=== PATIENT | male | born 1995 | race Caucasian/White ===

== ENCOUNTER 2017-11-13 01:59 | Emergency (ER) | payer OTHER, BC ==
[2017-11-13 03:42] LABS: BASO # 0.1 10^3/uL (0.0-0.2); BASO % 0.5 % (0.0-1.0); EOS % 0.1 % (0.0-3.0); HEMATOCRIT 47.2 % (42.0-52.0); HEMOGLOBIN 16.4 g/dl (14.0-18.0); IMMATURE GRANULOCYTE % 0.3 % (0-3.0); LYMPH # 2.6 10^3/uL (1.5-6.5); LYMPH % 22.1 % (24.0-44.0); MEAN CORPUSCULAR HEMOGLOBIN 29.5 pg (27.0-33.0); MEAN CORPUSCULAR HGB CONC 34.7 g/dl (32.0-36.5); MEAN CORPUSCULAR VOLUME 84.9 fl (80.0-96.0); MONO # 0.7 10^3/uL (0.0-0.8); MONO % 6.3 % (0.0-5.0); NEUTROPHILS # 8.2 10^3/uL (1.8-7.7); NEUTROPHILS % 70.7 % (36.0-66.0); PLATELET COUNT, AUTOMATED 252 10^3/uL (150-450); RED BLOOD COUNT 5.56 10^6/uL (4.30-6.10); RED CELL DISTRIBUTION WIDTH 12.3 % (11.5-14.5); WHITE BLOOD COUNT 11.7 10^3/uL (4.0-10.0)
[2017-11-13 03:54] LABS: PROTHROMBIN TIME 12.3 SECONDS (12.4-14.5)
[2017-11-13 03:55] LABS: PARTIAL THROMBOPLASTIN TIME 30.9 SECONDS (26.8-37.9)
[2017-11-13 04:13] LABS: ALBUMIN 4.1 GM/DL (3.2-5.2); ALBUMIN/GLOBULIN RATIO 1.14 (1.00-1.93); ALKALINE PHOSPHATASE 67 U/L (45-117); ALT/SGPT 43 U/L (12-78); AMYLASE 47 U/L (25-115); ANION GAP 6 MEQ/L (8-16); AST/SGOT 28 U/L (7-37); BILIRUBIN,DIRECT 0.1 MG/DL (0.0-0.2); BILIRUBIN,TOTAL 0.5 MG/DL (0.2-1.0); BLOOD UREA NITROGEN 10 MG/DL (7-18); CALCIUM LEVEL 8.4 MG/DL (8.5-10.1); CARBON DIOXIDE LEVEL 27 MEQ/L (21-32); CHLORIDE LEVEL 110 MEQ/L (98-107); CPK CREATINE PHOSPHOKINASE 356 U/L (39-308); CREATININE FOR GFR 0.89 MG/DL (0.70-1.30); GLOMERULAR FILTRATION RATE > 60.0 (>60); GLUCOSE, FASTING 111 MG/DL (70-100); KETONE, URINE AUTO RFX TRACE mg/dL (NEGATIVE); LIPASE 180 U/L (73-393); MB/CK RELATIVE INDEX 0.84 (< OR =4); MUCUS, URINE RFX SMALL (NEGATIVE); NITRITE, URINE AUTO RFX NEGATIVE (NEGATIVE); POTASSIUM SERUM 4.1 MEQ/L (3.5-5.1); RBC, URINE AUTO RFX 6 /HPF (0-3); SODIUM LEVEL 143 MEQ/L (136-145); SPECIFIC GRAVITY UR AUTO RFX 1.018 (1.002-1.035); SQUAM EPITHELIAL CELL UR AURFX 0 /HPF (0-6); TOTAL PROTEIN 7.7 GM/DL (6.4-8.2); TROPONIN I < 0.02 NG/ML (< 0.10); WBC, URINE AUTO RFX 8 /HPF (0-3)
[2017-11-13 04:26] LABS: LEUKOCYTE ESTERASE UR AUTO RFX TRACE (NEGATIVE)
[2017-11-13] MEDS: MORPHINE 4 MG/ML 1ML VIAL (J2270) IV (05:00)
== END 2017-11-13 05:22 | disposition home or self-care (01) ==
LOC: M ED 01:59
DX: Z04.1 Encounter for examination and observation following transport accident (principal); M62.830 Muscle spasm of back; F17.200 Nicotine dependence, unspecified, uncomplicated
CPT/HCPCS: J2270

== ENCOUNTER 2018-05-03 09:51 | Emergency (ER) | payer OTHER ==
[2018-05-03] MEDS: ADACEL/BOOSTRIX VACCINE (DIPHTH/PERTUSS/ACELL/TETANUS)0.5ML SYR (90715) IM (10:26)
[2018-05-03] MEDS: DERMABOND TOPICAL SKIN ADHESIVE TOP (10:30)
== END 2018-05-03 10:49 | disposition home or self-care (01) ==
LOC: M ED 09:51
DX: S61.211A Laceration without foreign body of left index finger without damage to nail, initial encounter (principal); W26.8XXA Contact with other sharp object(s), not elsewhere classified, initial encounter; Y92.89 Other specified places as the place of occurrence of the external cause; F17.200 Nicotine dependence, unspecified, uncomplicated; Z88.8 Allergy status to other drugs, medicaments and biological substances
CPT/HCPCS: 90715

== ENCOUNTER 2018-06-25 10:30 | Day surgery (SDC) | payer OTHER ==
[2018-06-25] MEDS: MORPHINE 4 MG/ML 1ML VIAL/SYRINGE (J2270) IV ×2 (10:45→13:14)
[2018-06-25] MEDS: ceFAZolin SOD 1 GM in D5W MINI-BAG PLUS 50 ML IV (10:46)
[2018-06-25] MEDS: NS 1,000 ML IV (10:46)
[2018-06-25] MEDS ORDERED: MORPHINE 4 MG/ML 1ML VIAL/SYRINGE (J2270) IV (16:00)
[2018-06-25] MEDS ORDERED: MORPHINE 2 MG/ML 1ML SYRINGE (J2270) As Ordered (16:05)
[2018-06-25] MEDS: MORPHINE 2 MG/ML 1ML SYRINGE (J2270) IV (16:09)
[2018-06-25] MEDS ORDERED: LIDOCAINE 2% INJ 100 MG/5 ML SDV (FOR ANES.) As Ordered (19:35)
[2018-06-25] MEDS ORDERED: ROCURONIUM BROMIDE 50 MG/5 ML VIAL As Ordered (19:35)
[2018-06-25] MEDS ORDERED: PROPOFOL 200 MG/20 ML VIAL As Ordered (19:35)
[2018-06-25] MEDS ORDERED: MIDAZOLAM INJ 2 MG/2 ML VIAL (J2250) As Ordered (19:36)
[2018-06-25] MEDS ORDERED: fentaNYL 250 MCG/5 ML INJECTION (J3010) As Ordered (19:36)
[2018-06-25] MEDS ORDERED: ceFAZolin 1GM INJ (J0690 PER 500MG) As Ordered (19:51)
[2018-06-25] MEDS: ceFAZolin 1GM INJ (J0690 PER 500MG) As Ordered (19:55)
[2018-06-25] MEDS ORDERED: HYDROmorphone HCL 2 MG/ML 1ML VIAL (J1170) As Ordered (20:18)
[2018-06-25] MEDS ORDERED: fentaNYL 100 MCG/2 ML INJECTION (J3010) As Ordered (20:19)
[2018-06-25] MEDS ORDERED: GLYCOPYRROLATE INJ 0.2 MG/ML 2 ML VIAL As Ordered (20:22)
[2018-06-25] MEDS ORDERED: dexameTHASONE 4 MG/ML 1ML VIAL (J1100) As Ordered ×2 (20:22)
[2018-06-25] MEDS ORDERED: NEOSTIGMINE 10 MG/10 ML VIAL (J2710) As Ordered (20:22)
[2018-06-25] MEDS ORDERED: KETOROLAC 60 MG/2 ML VIAL (J1885) As Ordered (20:23)
[2018-06-25] MEDS ORDERED: ONDANSETRON 4MG/2ML VIAL (J2405) As Ordered (20:23)
[2018-06-25] MEDS ORDERED: METOCLOPRAMIDE INJ 10MG/2ML VIAL (J2765) As Ordered (20:23)
[2018-06-25] MEDS: PERCOCET 5MG/325MG TAB PO ×2 (21:10→21:40)
[2018-06-25] MEDS ORDERED: LR 1,000 ML IV (21:15)
[2018-06-25] MEDS ORDERED: METOCLOPRAMIDE INJ 10MG/2ML VIAL (J2765) IV (21:15)
[2018-06-25] MEDS ORDERED: fentaNYL 100 MCG/2 ML INJECTION (J3010) IV (21:15)
[2018-06-25] MEDS ORDERED: MORPHINE 10 MG/ML 1ML VIAL (J2270) IV (21:15)
[2018-06-25] MEDS ORDERED: ONDANSETRON 4MG/2ML VIAL (J2405) IV (21:15)
== END 2018-06-25 22:05 | disposition home or self-care (01) ==
LOC: M SDC 22:05 → M ED 10:30 → M SDC 14:12
DX: S68.622A Partial traumatic transphalangeal amputation of right middle finger, initial encounter (principal); E66.9 Obesity, unspecified; W31.89XA Contact with other specified machinery, initial encounter; Y92.59 Other trade areas as the place of occurrence of the external cause; Y93.89 Activity, other specified; Y99.0 Civilian activity done for income or pay; Z72.0 Tobacco use; Z68.34 Body mass index [BMI] 34.0-34.9, adult
CPT/HCPCS: 26951

== ENCOUNTER → 2019-05-06 | Day surgery (SDC) | payer OTHER ==
[~2019-05-06] VITALS: Ht 193 cm; Wt 120.1 kg
[~2019-05-06] MED LIST: HYDR-3715 PO; KEFL500C17 PO
[2019-05-06 15:43] VITALS: BP 124/76
== END | disposition home or self-care (01) ==
LOC: M SDC 15:13
PROVIDERS: ATTEND Orthopaedic Surgery Hand Surgery
DX: Z53.8 Procedure and treatment not carried out for other reasons (principal)

== ENCOUNTER 2024-12-29 13:33 | Emergency (ER) | payer OTHER ==
[~2024-12-29] VITALS: Ht 193 cm; Wt 130.8 kg
[2024-12-29 13:35] VITALS: TEMP 98.2; O2SAT 99
[2024-12-29 14:24] VITALS: BP 142/97
[2024-12-29] MEDS: LIDOCAINE 1% MDV 20ML VIAL SC ONE (16:35)
[2024-12-29] MEDS: BOOSTRIX VACCINE (TETANUS/DIPHTH/ACEL. PERTUSSIS) 0.5ML SYR IM.IMMUN ONE (16:40)
[2024-12-29] MEDS ORDERED: NEOSPORIN TOP OINT 15GM TOP ONE (17:45)
== END 2024-12-29 17:57 | disposition home or self-care (01) ==
LOC: M ED 13:33
DX: S61.412A Laceration without foreign body of left hand, initial encounter (principal); Y92.9 Unspecified place or not applicable; Y93.9 Activity, unspecified; Y99.0 Civilian activity done for income or pay; F17.210 Nicotine dependence, cigarettes, uncomplicated; F12.10 Cannabis abuse, uncomplicated; F10.10 Alcohol abuse, uncomplicated; Z88.5 Allergy status to narcotic agent; Z23 Encounter for immunization